=== PATIENT | male | born 1965 | race Caucasian/White ===

== ENCOUNTER 2025-01-25 18:22 | Emergency (ER) | payer OTHER, SELFPAY ==
[2025-01-25 18:28] VITALS: BP 137/84
[2025-01-25 18:47] LABS: Urine Character Clear (Clear)
[2025-01-25 19:11] LABS: Urine Squamous Cell 0-2 /LPF (Few)
[2025-01-25 19:12] LABS: Urine Red Blood Cell 16-20 /HPF (0-2)
[2025-01-25 20:12] VITALS: BMI 31.4
[2025-01-25] MEDS: NSS 1000 IV (20:46)
[2025-01-25] MEDS: TYLENOL 650 MG PO (20:57)
[2025-01-25 21:10] LABS: Hematocrit 41.4 % (39.0-52.0); Hemoglobin 14.2 g/dL (13.0-18.0); Mean Corp Hgb Conc. 34.3 g/dL (33.0-37.0); Mean Corpuscular Volume 86.3 fL (80.0-94.0); Nucleated Red Blood Cells % 0 % (-); Platelet Count 254 10^3/uL (130-400); Red Cell Dist. Width 12.9 % (11.5-14.5)
[2025-01-25 21:14] LABS: ALT (SGPT) 26 U/L (0-50); AST (SGOT) 25 U/L (17-59); Albumin 4.5 g/dl (3.5-5.0); Alkaline Phosphatase 50 U/L (38-126); Blood Urea Nitrogen 29 mg/dl (9-20); Calcium 9.4 mg/dl (8.4-10.2); Carbon Dioxide 21 mmol/L (22-30); Chloride 112 mmol/L (98-107); Estimated Creatinine Clearance 59 ml/min; Glucose 114 mg/dl (70-99); Potassium 4.3 mmol/L (3.5-5.1); Sodium 139 mmol/L (135-145); Total Protein 6.9 g/dl (6.3-8.2); eGFR 52.64
--- NOTE | 2025-01-25 21:27 | ED.GENMED ---
History of Present Illness
General
Chief Complaint: Flank Pain
Source: patient
Exam Limitations: none
Time Seen by Provider: 01/25/25 20:08
Nursing documentation reviewed up to this point in time: agreed with
History of Present Illness
History of Present Illness:
Patient is a 59-year-old male with history of prostate cancer who presents to the emergency department for evaluation of acute onset right flank pain. Patient states he noticed some pain in his right flank when he woke up this morning however had
acute worsening of symptoms while [place] was on a boat around lunchtime today. He describes a sharp, stabbing pain in his right flank which does seem to radiate around into his suprapubic region. Sharp pain is intermittent in nature and associated
with waves of nausea. Patient denies any fever, chills. He has had no episodes of vomiting. No diarrhea or constipation. No chest pain or shortness of breath. No rash.
Patient was seen at urgent care prior to arrival where he was found to have microscopic hematuria and given 60 mg IM Toradol for suspected renal colic
Patient denies any past history of kidney stones.
Review of Systems
Review of Systems
Allergies reviewed?: Yes
All Other Systems: ROS reviewed and negative except as documented in HPI and ROS
Phy Exam
Physical Exam
Physical Exam:
Vitals: Hypertensive, otherwise vital signs stable. Afebrile
General: Patient is well appearing, no acute distress. Nontoxic appearing
Skin: Warm and dry, no rashes or lesions
Head: Normocephalic, atraumatic
Eyes: Sclera nonicteric.
Throat: Protecting airway
Neck: Normal ROM, no cervical spine tenderness, no meningismus
Cardiac: Regular rate and rhythm, no murmurs.
Pulm: Normal respiratory effort, no wheezes, rales, rhonchi heard on exam
Abdomen: Abdomen soft. No reproducible tenderness in abdomen. No CVA tenderness or rash.
Extremities: No evidence of cyanosis or edema. 2+ palpable DP pulses bilaterally
Neuro: AAOx3. Grossly intact.
Psychiatric: Normal affect.
Course
Orders/Labs/Results
Orders:
Orders
01/25/25 18:38
Urinalysis Reflex To Culture Urgent
Date Specimen was Collected: 01/25/25
Time Specimen was Collected: 18:33
Urine Microscopic Reflex Cult Urgent
01/25/25 20:31
Abdomen/Pelvis wo Contrast CT [CT Abd/pelvis Wo Iv Cont] Urgent
Comment:
Reason For Exam: Right flank pain
0.9% Sodium Chloride 1000 ml [Nss] 1,000 ml IV BOLUS
01/25/25 20:47
Complete Blood Count/With Diff Urgent
Comprehensive Metabolic Panel Urgent
01/25/25 20:54
Acetaminophen [Tylenol] 650 mg PO NOW STA
Abnormal Lab Results
01/25/25 01/25/25
18:38 20:47
Absolute Monos (auto) 0.8 H 10^3/uL
(0.1-0.6)
Chloride 112 H mmol/L
(98-107)
Carbon Dioxide 21 L mmol/L
(22-30)
BUN 29 H mg/dl
(9-20)
Creatinine 1.5 H mg/dL
(0.7-1.3)
Glucose 114 H mg/dl
(70-99)
Ur Occult Blood Reflex 2+ A
(Negative)
Urine RBC 16-20 A /HPF
(0-2)
Urine Bacteria (Reflex) Few A
(Negative)
01/25/25 20:47
01/25/25 20:47
Vital Signs
Initial and Last Documented VS:
Initial Vital Signs
Temp Pulse Resp BP Pulse Ox
98.2 F 73 16 137/84 98
01/25/25 18:28 01/25/25 18:28 01/25/25 18:28 01/25/25 18:28 01/25/25 18:28
Last Documented Vital Signs
Temp Pulse Resp BP Pulse Ox
98.2 F 73 16 137/84 98
01/25/25 18:28 01/25/25 18:28 01/25/25 18:28 01/25/25 18:28 01/26/25 04:28
MDM/Problems Addressed
Differential Diagnosis Includes:
Not limited to: Renal colic, pyelonephritis, UTI, muscle spasm/strain, zoster, appendicitis, incarcerated hernia, etc.
MDM/Problems Addressed:
59-year-old male with one day of right flank pain, along with waves of nausea. No fevers, vomiting, diaphoresis, or dysuria. Vitals and physical exam as above.
Patient well appearing by my assessment � he did receive 60 mg IM Toradol at urgent care prior to arrival to ED. Abdomen soft and nontender with normal cardio/pulmonary assessment
Differential as above. Clinically suspicious for renal colic. However, other possibilities would be appendicitis, pyelonephritis, musculoskeletal etiology, etc.
UA obtained prior to my evaluation does show many RBCs however no clear evidence of infection.
ED plan: will check labs, noncontrast CT scan abdomen/pelvis for further evaluation.
Update: labs reviewed. CBC without acute abnormalities. CMP does show mild renal insufficiency � however no baseline for comparison. CT scan shows obstructing 2 mm calculus at right UVJ.
Discussed with patient at length. His pain has remaining well controlled in emergency department after Toradol at urgent care and one dose of Tylenol. Given no evidence of associated urinary tract infection and well managed pain � feel patient
appropriate for attempted passage of stone outpatient. Will provide pain management, Flomax. Very strict return precautions discussed, including any signs of infection. Patient will follow up with urology. He is stable for discharge home and
comfortable with plan.
Chronic conditions affecting care:
N/A
Acute Exacerbation and/or Progression of Chronic Illness:
N/A
*Radiology
Radiology exam reviewed: radiology read reviewed
*Pulse Oximetry
SaO2: 98
Oxygen Mode of Delivery: Room air
Patient hypoxic: no
*EKG
Interpreted by ED Provider?: NA
*Elderly Sitter Interpretation
Rate: Elderly Sitter- N/A
*Critical Care Note
Total Time (30-74mins, 75-104mins- exclusive of procedures): Not Applicable
ED Attending Note
-
Portions of this chart may have been created with voice recognition software.� Occasional wrong word or��sound alike� substitutions may have occurred due to the inherent limitations of voice recognition software.
Discharge Plan
Departure
Patient Disposition: Home (Routine Discharge)
Date of Disposition: 01/25/25
Time of Disposition: 23:20
Patient with high blood pressure during this ER visit?: Yes
Discharge Problem:
Right distal ureteral calculus
Instructions: Kidney Stones (DC), How to Strain Your Urine, BLOOD PRESSURE
Prescriptions:
New
oxycodone 5 mg tablet
5 mg PO Q8H PRN (Reason: Pain) Qty: 5 0RF
tamsulosin [Flomax] 0.4 mg capsule
0.4 mg PO DAILY Qty: 14 0RF
ondansetron 4 mg tablet,disintegrating
4 mg PO Q8H PRN (Reason: nausea and vomiting) Qty: 7 0RF
Referrals:
Roberto Carlos Paredes MD [Active, Urology] - Next open appointment
UNKNOWN - PT DOES,NOT KNOW [Family Provider]
Activity Restrictions/Additional Instructions:
RETURN TO THE EMERGENCY DEPARTMENT WITH ANY FEVERS, INTRACTABLE PAIN, INTRACTABLE NAUSEA/VOMITING, DYSURIA, INABILITY TO URINATE, WORSENING IN CURRENT SYMPTOMS, OR ANY OTHER CONCERNS
- As discussed�your CT scan showed a 2 mm stone at your right ureterovesicular junction. Your kidney function, creatinine was elevated today at 1.5. DISCUSSED�IT IS VERY IMPORTANT YOU HAVE THIS REPEATED IN THE NEXT WEEK TO ENSURE TRENDING IN
THE RIGHT
- It is important stay to well-hydrated. You can take 600 mg Motrin every 6-8 hours as needed for pain. For intractable pain�you can take oxycodone. This may cause drowsiness -do not take prior to driving. You should also take tamsulosin daily
until you pass the kidney stone.
- Please be sure to strain your urine.
- Follow-up with urology for further evaluation/management
Monitor your symptoms closely and return to the emergency department with any acute worsening/new symptoms or any signs of worsening infection
Interventions
Interventions:
*Risk Screen - Suicide Last Done: 01/25/25 18:28
*General Assessment Last Done: 01/25/25 20:12
*Neglect/Abuse Screening Last Done: 01/25/25 18:28
*ED- Fall Risk Assessment Last Done: 01/25/25 20:12
*ED COVID-19 Vaccine History Last Done: 01/25/25 20:12
*Nursing Disposition Last Done: 01/26/25 00:06
TX-Htsriv-Nimhohdjad Assessment Last Done: 01/25/25 20:15
ED-Male Genitourinary Assessment Last Done: 01/25/25 20:15
Discharge Date and Time
Discharge Date/Time: 01/26/25 00:08
Print Language: UKRAINIAN
== END 2025-01-26 00:08 | disposition home or self-care (01) ==
LOC: EMR 18:22
PROVIDERS: Emergency Medicine; Physician Assistant; EMERGENCY PHYSICIAN Student in an Organized Health Care Education/Training Program
DX: N13.2 Hydronephrosis with renal and ureteral calculous obstruction (principal); Z85.46 Personal history of malignant neoplasm of prostate
CPT/HCPCS: 99284; 96360; 74176; 80053; 81003; 81015; 85025